=== PATIENT | female | born 1950 | race Caucasian/White ===

== ENCOUNTER 2018-06-05 18:46 | Emergency (ER) | payer MEDICARE, MEDICAID ==
[~2018-06-05] VITALS: Ht 157.5 cm; Wt 72.6 kg
[2018-06-05] MEDS ORDERED: TYLENOL EXTRA500 MG PO (19:02)
[2018-06-05 19:44] LABS: ABSOLUTE BASOPHILS 0.1 thou/uL (0.0-0.2); ABSOLUTE EOSINOPHILS 0.1 thou/uL (0.0-0.7); ABSOLUTE LYMPHOCYTES 1.8 thou/uL (0.8-5.3); ABSOLUTE MONOCYTES 0.6 thou/uL (0.0-1.2); ABSOLUTE NEUTROPHILS 5.9 thou/uL (1.6-8.1); BASOPHILS 0.8 %; EOSINOPHILS 0.8 %; HEMATOCRIT 37.1 % (37.0-47.0); HEMOGLOBIN 12.4 gm/dL (12.0-15.0); LYMPHOCYTES 21.6 %; MCH 29.3 pg (26.0-34.0); MCHC 33.3 g/dL (28.0-37.0); MONOCYTES 7.1 %; MPV 7.9 fl. (7.2-11.1); NUCLEATED RBCS 0 /100WBC; PLATELET COUNT* 244 thou/uL (150-400); POLYS 69.7 %; RBC 4.22 mil/uL (4.20-5.00); RDW-CV 13.5 % (10.5-14.5); WBC 8.5 thou/uL (4.0-11.0)
[2018-06-05 19:50] LABS: ANION GAP 6 mmol/L (7-16); BUN 10 mg/dL (7-18); CALCIUM 8.7 mg/dL (8.5-10.1); CHLORIDE 106 mmol/L (98-107); CO2 28 mmol/L (21-32); CREATININE 0.9 mg/dL (0.6-1.3); GLUCOSE 104 mg/dL (70-99); POTASSIUM 3.8 mmol/L (3.5-5.1); SODIUM 140 mmol/L (136-145)
[2018-06-05 19:58] LABS: ALBUMIN 3.4 g/dL (3.4-5.0); ALKALINE PHOSPHATASE 95 U/L (46-116); SGOT 16 U/L (15-37); SGPT 27 U/L (30-65); TOTAL BILIRUBIN 0.4 mg/dL (<0.1-1.0); TOTAL PROTEIN 7.3 g/dL (6.4-8.2); TROPONIN-I LEVEL <0.06 ng/mL (<0.06)
[2018-06-05 20:00] LABS: URINE BILIRUBIN NEGATIVE (Negative); URINE BLOOD NEGATIVE (Negative); URINE CLARITY CLEAR; URINE COLOR YELLOW; URINE GLUCOSE-RANDOM NEGATIVE (Negative); URINE KETONES NEGATIVE (Negative); URINE LEUKOCYTES-REFLEX NEGATIVE (Negative); URINE NITRITE-REFLEX NEGATIVE (Negative); URINE PROTEIN NEGATIVE (Negative); URINE SPECIFIC GRAVITY 1.025 (1.005-1.030); URINE UROBILINOGEN 0.2 E.U./dl (0.2-1.0)
[2018-06-05] MEDS ORDERED: TRAMADOL 50 MG50 MG PO (20:15)
[2018-06-05 20:25] VITALS: BP 128/59
--- NOTE | 2018-06-07 16:57 | EKG ---
[place] [address] ELECTROCARDIOGRAM REPORT Name: YEMI SANCHEZ Room: [facility]#: [id number] Admission: 06/05/18 Attend Phys: Discharge: 06/05/18 Date of : 52 Report #: [id number] THIS REPORT FOR: //name// [facility] ED Test Date: 2018-06-05 Test Time: 19:32:19 Pat Name: YEMI SANCHEZ Department: Room: Gender: F Custom [employer]verter: Jose SIMENTAL : 1950 Requested By: Morenita Merino Order Number: [id number] MD: Darío Jimenez Measurements Intervals [place] Rate: 74 P: 60 NM: 170 QRS: 43 QRSD: 84 T: 57 QT: 400 QTc: 444 Interpretive Statements Sinus rhythm No previous ECG available for comparison Electronically Signed On 06-07-2018 16:57:11 CDT by Darío Jimenez [email or web address] <ELECTRONICALLY SIGNED> By: Darío Jimenez MD, [facility] 06/07/18 1657 [id number] Darío Jimenez MD, FACC /EPI
== END 2018-06-05 20:26 | disposition home or self-care (01) ==
LOC: M.ERS 18:46
PROVIDERS: Nurse Practitioner Family
DX: S23.41XA Sprain of ribs, initial encounter (principal); S23.3XXA Sprain of ligaments of thoracic spine, initial encounter; J44.9 Chronic obstructive pulmonary disease, unspecified; Z90.49 Acquired absence of other specified parts of digestive tract; Z88.1 Allergy status to other antibiotic agents; W18.39XA Other fall on same level, initial encounter; Y93.89 Activity, other specified; Y92.89 Other specified places as the place of occurrence of the external cause; Y99.8 Other external cause status

== ENCOUNTER 2019-05-16 15:18 | Emergency (ER) | payer MEDICARE, MEDICAID ==
[~2019-05-16] VITALS: Ht 182.9 cm; Wt 77.1 kg
[~2019-05-16 15:18] MED LIST: TRAMADOL 50 MG50 MG PO; TYLENOL EXTRA500 MG PO
[2019-05-16 16:34] LABS: URINE BILIRUBIN NEGATIVE (Negative); URINE BLOOD NEGATIVE (Negative); URINE CLARITY CLEAR; URINE COLOR YELLOW; URINE GLUCOSE-RANDOM NEGATIVE (Negative); URINE KETONES NEGATIVE (Negative); URINE LEUKOCYTES-REFLEX TRACE (Negative); URINE NITRITE-REFLEX NEGATIVE (Negative); URINE PROTEIN NEGATIVE (Negative); URINE UROBILINOGEN 0.2 E.U./dl (0.2-1.0)
[2019-05-16 16:36] LABS: ABSOLUTE BASOPHILS 0.1 thou/uL (0.0-0.2); ABSOLUTE EOSINOPHILS 0.1 thou/uL (0.0-0.7); ABSOLUTE LYMPHOCYTES 2.1 thou/uL (0.8-5.3); ABSOLUTE MONOCYTES 0.6 thou/uL (0.0-1.2); ABSOLUTE NEUTROPHILS 5.7 thou/uL (1.6-8.1); BASOPHILS 0.6 %; EOSINOPHILS 1.2 %; HEMATOCRIT 39.4 % (37.0-47.0); HEMOGLOBIN 13.2 gm/dL (12.0-15.0); LYMPHOCYTES 24.5 %; MCH 29.6 pg (26.0-34.0); MCHC 33.4 g/dL (28.0-37.0); MCV 88.5 fL (80.0-100.0); MONOCYTES 7.1 %; NUCLEATED RBCS 0 /100WBC; PLATELET COUNT* 245 thou/uL (150-400); POLYS 66.6 %; RBC 4.45 mil/uL (4.20-5.00); RDW-CV 13.7 % (10.5-14.5); WBC 8.5 thou/uL (4.0-11.0)
[2019-05-16 16:41] LABS: SQUAMOUS 4-10 Moderate /LPF (0-3)
[2019-05-16 16:47] LABS: CASTS None Seen /LPF (None Seen); CRYSTALS None Seen /LPF (None Seen); MUCUS 0-3 Light strn/LPF (None Seen); URINE RBC None Seen /HPF (0-2); URINE WBC-REFLEX 0-5 Rare /HPF (0-5)
[2019-05-16 17:00] LABS: ANION GAP 7 mmol/L (7-16); BUN 9 mg/dL (7-18); CHLORIDE 104 mmol/L (98-107); CO2 29 mmol/L (21-32); CREATININE 0.8 mg/dL (0.6-1.3); GLUCOSE 105 mg/dL (70-99); SODIUM 140 mmol/L (136-145)
[2019-05-16 17:09] LABS: ALBUMIN 3.5 g/dL (3.4-5.0); ALKALINE PHOSPHATASE 122 U/L (46-116); LIPASE 130 U/L (73-393); SGOT 22 U/L (15-37); SGPT 38 U/L (30-65); TOTAL BILIRUBIN 0.5 mg/dL (<0.1-1.0); TOTAL PROTEIN 7.5 g/dL (6.4-8.2); TROPONIN-I LEVEL <0.06 ng/mL (<0.06)
[2019-05-16] MEDS ORDERED: NORCO 5-325 TA1 EAC1 PO (18:07)
[2019-05-16] MEDS ORDERED: AUGMENTIN 875-1 EACH PO (18:07)
[2019-05-16] MEDS ORDERED: DIFLUCAN150 M1 PO (18:07)
[2019-05-16] MEDS ORDERED: FLAGYL500 M1 PO (18:07)
[2019-05-16] MEDS ORDERED: VAGISIL CREAM28 G1 TOP (18:07)
[2019-05-16] MEDS ORDERED: ONDANSETRON HCL4 M2 PO (18:08)
[2019-05-16] MEDS ORDERED: TRAMADOL 50 MG50 MG PO (18:32)
[2019-05-16 18:38] VITALS: BP 133/69
--- NOTE | 2019-05-17 08:44 | EKG ---
[place] [address] ELECTROCARDIOGRAM REPORT Name: [facility]EMI [facility]ANCHEZ [id number]: 05/16/19 Attend Phys: Discharge: 05/16/19 Date of : 52 Report #: [id number] THIS REPORT FOR: //name// [facility] ED Test Date: 2019-05-16 Test Time: 16:27:36 Pat Name: YEMI SANCHEZ Department: Room: Gender: F Head Tenn[employer]: : 1950 Requested By: Ingris Whyte Order Number: [id number] MD: Omid Burgos Measurements Intervals [place] Rate: 69 P: 76 [place]: 170 QRS: 47 QRSD: 94 T: 51 QT: 403 QTc: 432 Interpretive Statements Sinus rhythm Compared to ECG 06/05/2018 19:32:19 No significant changes Electronically Signed On 05-17-2019 8:44:34 CDT by Omid Burgos [email or web address] <ELECTRONICALLY SIGNED> By: Omid Burgos MD, [facility] 05/17/19 0844 [id number] 1627 Omid Burgos MD, FACC /EPI
== END 2019-05-16 18:41 | disposition home or self-care (01) ==
LOC: M.ERS 15:18
PROVIDERS: Nurse Practitioner Family
DX: N76.0 Acute vaginitis (principal); K52.9 Noninfective gastroenteritis and colitis, unspecified; D35.00 Benign neoplasm of unspecified adrenal gland; N83.202 Unspecified ovarian cyst, left side; J44.9 Chronic obstructive pulmonary disease, unspecified; Z90.49 Acquired absence of other specified parts of digestive tract; Z88.1 Allergy status to other antibiotic agents